=== PATIENT | female | born 1945 | race Caucasian/White ===

== ENCOUNTER → 2017-08-18 09:14 | Outpatient (CLI) | payer MEDICARE, OTHER, SELFPAY ==
[2017-08-18 10:24] LABS: ALB/GLOB Ratio 1.1 RATIO (0.9-2.4); AST(SGOT) 18 U/L (15-37); Alanine Aminotransfer ALT/SGPT 23 U/L (13-56); Albumin, Serum 4.1 g/dL (3.2-5.0); Alkaline Phosphatase 55 U/L (45-117); Anion Gap 6 (5-15); BUN 12 mg/dL (7-18); BUN/Creat Ratio 17.4 RATIO (10-20); Calcium,Total 8.9 mg/dL (8.5-10.1); Chloride 101 mmol/L (98-107); Cholesterol 191 mg/dL (200); Creatinine, Serum 0.69 mg/dL (0.55-1.02); EST Glomerular Filtration Rate 89 mL/min (>60); Est Glom Filt Rate - Afr Amer 108 mL/min (>60); Globulin 3.7 g/dL (2.2-4.2); Glucose 84 mg/dL (74-106); High Density Lipoprotein 45 mg/dL; Protein, Total 7.8 g/dL (6.4-8.2); Sodium Level 136 mmol/L (136-145); Triglycerides 172 mg/dL; Very Low Density Lipoprotein 34 mg/dL (5-40)
== END ==
PROVIDERS: Family Provider Internal Medicine; PCP Internal Medicine; Visit Provider Internal Medicine
DX: E78.00 Pure hypercholesterolemia, unspecified (principal); E87.5 Hyperkalemia; I10 Essential (primary) hypertension
CPT/HCPCS: 36415; 80053; 80061

== ENCOUNTER → 2017-12-08 08:51 | Outpatient (CLI) | payer MEDICARE, OTHER, SELFPAY ==
--- NOTE | 2017-12-08 08:56 | BD_ITS ---
STUDY: DUAL ENERGY X-RAY ABSORPTIOMETRY / DXA REASON FOR EXAM: Female, 72 years old. The patient is postmenopausal. Loss of height. TECHNIQUE: Bone Mineral Density (BMD) measurements of lumbar spine and bilateral hips were obtained. COMPARISON: Comparison is made with prior study dated November 26, 2015. FINDINGS: Lumbar Spine (L1-L4): g/cm2 (1.261) / T-score (0.8) / Z-score (2.5) Findings are suggestive of normal bone density with a low fracture risk. Left Femur Total: g/cm2 (1.032) / T-score (0.2) / Z-score (1.8) Left Femoral Neck: g/cm2 (0.906) / T-score (-0.9) / Z-score (0.8) Right Femur Total: g/cm2 (1.034) / T-score (0.2) / Z-score (1.8) Right Femoral Neck: g/cm2 (0.951) / T-score (-0.7) / Z-score (1.1) The T-Scores on the most recent prior examination were: Lumbar Spine (L1-L4): There has been worsening of bone density since the previous examination. Left Femur Total: which represents a worsening of 4.2%. Right Femur Total: which represents a worsening of 1.4%. BD/DXA BONE DENS W/VERT FX ASMT IMPRESSION: The patient is considered normal as outlined below according to World Maximiliano Organization (WHO) criteria with a low fracture risk. There has been worsening of bone density since the previous examination. Reference Information: The T-score is the number of standard deviations above or below the standard which is normal for young adults at their peak bone mineral density. The World Health Organization (WHO) interprets the T-scores as follows: Above -1 Normal bone density Between -1 and -2.5 Osteopenia Equal to / or below -2.5 Osteoporosis As a practical clinical guideline, osteopenia may be graded as follows: Mild -1 through -1.5 Moderate -1.6 through -2.0 Severe -2.1 through -2.4 The Z-score is the number of standard deviations above or below age-matched controls. A Z-score of less than -1.5 would be considered abnormal. References: 1. NIH Osteoporosis and Related Bone Diseases http://www.osteo.org 2. International Society for Clinical Densitometry http://www.iscd.org 3. National Osteoporosis Foundation http://www.nof.org Electronically Signed: Doyle Barajas MD at 12:54 EDT Tel [phone], Service support ,
== END ==
PROVIDERS: Family Provider Internal Medicine; PCP Internal Medicine; Visit Provider Internal Medicine
DX: Z12.31 Encounter for screening mammogram for malignant neoplasm of breast (principal); Z78.0 Asymptomatic menopausal state
CPT/HCPCS: 77085

== ENCOUNTER → 2018-02-15 09:19 | Outpatient (CLI) | payer MEDICARE, OTHER, SELFPAY ==
[2018-02-15 09:25] LABS: Mucous, Urine 0 SEEN /hpf (<or=2+)
[2018-02-15 09:43] LABS: Basophil# 0.01 X10^3/uL; Basophil% 0.2 % (0-1); Eosinophils% 2.1 % (0-5); Hemoglobin 13.9 g/dl (12.0-15.0); Lymphocyte % 30.9 % (19-41); Mean Corp Hgb Conc 33.1 g/gl (32-36); Mean Corpuscular Hgb 30.3 pg (27.0-32.0); Mean Corpuscular Volume 91.7 fL (81-99); Mean Platelet Vol. 9.6 fl (6.2-12.0); Monocyte# 0.25 X10^3/uL; Monocyte% 5.1 % (0-10); Neutrophil # 2.99 X10^3/uL (2.7-7.7); Neutrophil % 61.5 % (47-70); Platelet Count 244 K/mm3 (150-450); RBC Distribution Width CV 12.9 % (11.6-14.6); RBC Distribution Width SD 43.3 fl (35.1-43.9); Red Blood Count 4.58 M/mm3 (4.2-5.4); White Blood Count 4.9 K/mm3 (4.4-11.0)
[2018-02-15 09:44] LABS: POSITIVE COUNT NO; POSITIVE DIFFERENTIAL NO; POSITIVE MORPHOLOGY NO
[2018-02-15 09:45] LABS: Color, Urine Yellow (Yellow); Glucose, Dipstick Normal (Normal); Ketone-Dipstick Negative (Negative); Leukocyte Esterase-Dipstick 25 /ul (Negative); Nitrite-Dipstick Negative (Negative); Occult Blood-Urine 25 /ul (Negative); Protein-Dipstick Negative (Negative); Specific Gravity, Urine 1.005 (1.002-1.030); Urine Bilirubin Dipstick Negative (Negative); Urine Clarity Sl. Cloudy (Clear); Urine Urobilinogen Normal (Normal)
[2018-02-15 09:52] LABS: Bacteria 1+ /hpf (None Seen); Red Blood Cells-Urine 0-5 SEEN /hpf (0-5); Squamous Epithelial Cells - UA 0-5 SEEN /hpf (5-10); White Blood Cells 0-5 SEEN /hpf (0-5)
[2018-02-15 10:04] LABS: Microalbumin,Random Urine 11.5 mg/L (NO RANGE EST.); Microalbumin:Creatinine Ratio 12.8 mg/g CRE (<30 mg/g CRE)
[2018-02-15 10:12] LABS: Vitamin D,25 Hydroxy 36.3 ng/mL (29.95-100.01)
[2018-02-15 10:14] LABS: ALB/GLOB Ratio 1.1 RATIO (0.9-2.4); AST(SGOT) 15 U/L (15-37); Alanine Aminotransfer ALT/SGPT 22 U/L (13-56); Albumin, Serum 3.9 g/dL (3.2-5.0); Alkaline Phosphatase 58 U/L (45-117); Anion Gap 8 (5-15); BUN 13 mg/dL (7-18); BUN/Creat Ratio 18.2 RATIO (10-20); Calcium,Total 9.2 mg/dL (8.5-10.1); Chloride 101 mmol/L (98-107); Cholesterol 169 mg/dL (200); Creatinine, Serum 0.72 mg/dL (0.55-1.02); EST Glomerular Filtration Rate 85 mL/min (>60); Est Glom Filt Rate - Afr Amer 103 mL/min (>60); Globulin 3.7 g/dL (2.2-4.2); Glucose 88 mg/dL (74-106); High Density Lipoprotein 39 mg/dL; Potassium 4.5 mmol/L (3.5-5.1); Protein, Total 7.6 g/dL (6.4-8.2); Sodium Level 137 mmol/L (136-145); Thyroid Stim Hormone (TSH) 1.59 uIU/mL (0.358-3.74); Triglycerides 155 mg/dL; Very Low Density Lipoprotein 31 mg/dL (5-40)
[2018-02-17 12:07] LABS: CHOLESTEROL TOTAL 172 mg/dL (100-199); HDL-C 37 mg/dL (>39); HDL-P TOTAL 27.6 umol/L (>=30.5); SMALL LDL-P 701 nmol/L (<=527); TRIGLYCERIDES 159 mg/dL (0-149)
[2018-02-17 13:02] LABS: LDL SIZE 20.8 nm (>20.5); LDL-C 103 mg/dL (0-99); LDL-P 1347 nmol/L (<1000); LP-IR SCORE ** 62 (<=45)
== END ==
PROVIDERS: Family Provider Internal Medicine; PCP Internal Medicine; Visit Provider Internal Medicine
DX: I10 Essential (primary) hypertension (principal); E55.9 Vitamin D deficiency, unspecified; E78.00 Pure hypercholesterolemia, unspecified
CPT/HCPCS: 36415; 80053; 80061; 81001; 82043; 82306; 82570; 83704; 84443; 85025

== ENCOUNTER → 2019-02-07 08:33 | Outpatient (CLI) | payer MEDICARE, OTHER, SELFPAY ==
[2019-02-07 08:54] LABS: Bacteria 0 SEEN /hpf (None Seen); Mucous, Urine 0 SEEN /hpf (<or=2+); Squamous Epithelial Cells - UA 0 SEEN /hpf (5-10); White Blood Cells 0 SEEN /hpf (0-5)
[2019-02-07 09:36] LABS: Color, Urine Yellow (Yellow); Glucose, Dipstick Normal (Normal); Ketone-Dipstick Negative (Negative); Leukocyte Esterase-Dipstick 25 /ul (Negative); Nitrite-Dipstick Negative (Negative); Occult Blood-Urine 50 /ul (Negative); Protein-Dipstick Negative (Negative); Urine Bilirubin Dipstick Negative (Negative); Urine Clarity Clear (Clear); Urine Urobilinogen Normal (Normal)
[2019-02-07 09:39] LABS: Absolute Lymphocyte Count 1.15 X10^3/uL (0.83-4.51); Absolute Neutrophil Count 2.7 X10^3/uL (2.0-7.7); Basophil# 0.04 X10^3/uL; Basophil% 0.9 % (0-1); Eosinophils% 4.4 % (0-5); Hematocrit 42.4 % (37-47); Hemoglobin 13.9 g/dL (12.0-15.0); Lymphocyte # 1.15 X10^3/ul (4.0); Lymphocyte % 25.3 % (19-41); Mean Corp Hgb Conc 32.8 g/dL (32-36); Mean Corpuscular Hgb 30.3 pg (27.0-32.0); Mean Corpuscular Volume 92.4 fL (81-99); Mean Platelet Vol. 9.7 fl (6.2-12.0); Monocyte# 0.41 X10^3/uL; NRBC Flagged by Analyzer 0 % (0-5); Neutrophil # 2.73 X10^3/uL (2.7-7.7); Platelet Count 259 K/mm3 (150-450); RBC Distribution Width CV 12.7 % (11.6-14.6); Red Blood Count 4.59 M/mm3 (4.2-5.4); White Blood Count 4.6 K/mm3 (4.4-11.0)
[2019-02-07 09:43] LABS: Red Blood Cells-Urine 0-5 SEEN /hpf (0-5)
[2019-02-07 10:20] LABS: Vitamin D,25 Hydroxy 42.1 ng/mL (29.95-100.01)
[2019-02-07 10:21] LABS: ALB/GLOB Ratio 1.1 RATIO (0.9-2.4); AST(SGOT) 20 U/L (15-37); Alanine Aminotransfer ALT/SGPT 22 U/L (13-56); Albumin, Serum 4.1 g/dL (3.2-5.0); Alkaline Phosphatase 58 U/L (45-117); Anion Gap 3 (5-15); BUN 15 mg/dL (7-18); Calcium,Total 9.5 mg/dL (8.5-10.1); Chloride 103 mmol/L (98-107); Creatinine, Serum 0.72 mg/dL (0.55-1.02); EST Glomerular Filtration Rate 85 mL/min (>60); Est Glom Filt Rate - Afr Amer 103 mL/min (>60); Globulin 3.9 g/dL (2.2-4.2); Glucose 89 mg/dL (74-106); Potassium 4.2 mmol/L (3.5-5.1); Sodium Level 135 mmol/L (136-145); Thyroid Stim Hormone (TSH) 1.85 uIU/mL (0.358-3.74)
[2019-02-07 11:43] LABS: Microalbumin,Random Urine 8.9 mg/L (NO RANGE EST.); Microalbumin:Creatinine Ratio 10.7 mg/g CRE (<30 mg/g CRE)
[2019-02-09 12:08] LABS: CHOLESTEROL TOTAL 199 mg/dL (100-199); HDL-C 43 mg/dL (>39); HDL-P TOTAL 30.5 umol/L (>=30.5); SMALL LDL-P 377 nmol/L (<=527); TRIGLYCERIDES 158 mg/dL (0-149)
[2019-02-12 13:35] LABS: INSULIN RESISTANCE SCORE 41 (<=45); LDL SIZE 21.5 nm (>20.5); LDL-C 124 mg/dL (0-99); LDL-P 1315 nmol/L (<1000)
== END ==
PROVIDERS: Family Provider Internal Medicine; PCP Internal Medicine; Referring Provider Internal Medicine; Visit Provider Internal Medicine
DX: E78.00 Pure hypercholesterolemia, unspecified (principal); E55.9 Vitamin D deficiency, unspecified; I10 Essential (primary) hypertension
CPT/HCPCS: 36415; 80053; 80061; 81001; 82043; 82306; 82570; 83704; 84443; 85025

== ENCOUNTER → 2019-02-19 08:15 | Outpatient (CLI) | payer MEDICARE, OTHER, SELFPAY ==
--- NOTE | 2019-02-19 08:17 | BI_ITS ---
MAMMOGRAPHY - BILATERAL SCREENING REASON FOR EXAM: Female, 74 years old. Routine annual screening examination. PERTINENT HISTORY: Aunt with breast cancer. TECHNIQUE: Digital bilateral breast mattie (3D mammographic acquisition) in the CC and MLO projections. 2-D mediolateral oblique (MLO) and craniocaudad (CC) views of both breasts were obtained. CAD: Full Field Digital Mammography with Computer Added Detection was performed. COMPARISON: Comparison is made with prior ocular examination dated October 25, 2017. FINDINGS: Breast Composition: There are scattered areas of fibroglandular density. There are no dominant masses or suspicious calcifications. Benign-appearing bilateral axillary lymph nodes. No other significant abnormalities are identified. There has been no significant change since the prior study. BI/SCREEN MAMM (CAD) W/MATTIE BILAT IMPRESSION: Stable bilateral screening mammogram. Yearly follow-up mammogram recommended. (A) ASSESSMENT CATEGORY: BIRADS Category 2: Benign. A letter regarding these results will be sent to the patient by the facility within 30 days. Approximately 10% of breast cancers are not detected by mammography. A normal mammogram should not delay biopsy of a clinically suspicious abnormality. [id number] Electronically Signed: Doyle Barajas, at 9:39 EDT , Service support ,
== END ==
PROVIDERS: Family Provider Internal Medicine; PCP Internal Medicine; Referring Provider Internal Medicine; Visit Provider Internal Medicine
DX: Z12.31 Encounter for screening mammogram for malignant neoplasm of breast (principal)
CPT/HCPCS: 77063; 77067

== ENCOUNTER → 2019-12-19 08:52 | Outpatient (CLI) | payer MEDICARE, OTHER, SELFPAY ==
[2019-12-19 09:04] LABS: Bacteria 0 SEEN /hpf (None Seen); Mucous, Urine 0 SEEN /hpf (<or=2+); Red Blood Cells-Urine 0 SEEN /hpf (0-5)
[2019-12-19 09:48] LABS: Color, Urine Yellow (Yellow); Glucose, Dipstick Normal (Normal); Ketone-Dipstick Negative (Negative); Leukocyte Esterase-Dipstick 25 /ul (Negative); Nitrite-Dipstick Negative (Negative); Occult Blood-Urine 25 /ul (Negative); Protein-Dipstick Negative (Negative); Specific Gravity, Urine 1.005 (1.002-1.030); Urine Bilirubin Dipstick Negative (Negative); Urine Clarity Sl. Cloudy (Clear); Urine Urobilinogen Normal (Normal)
[2019-12-19 09:49] LABS: Absolute Lymphocyte Count 1.48 X10^3/uL (0.83-4.51); Absolute Neutrophil Count 2.5 X10^3/uL (2.0-7.7); Basophil# 0.03 X10^3/uL; Basophil% 0.6 % (0-1); Eosinophil# 0.18 X10^3/uL; Eosinophils% 3.9 % (0-5); Hematocrit 41.7 % (37-47); Hemoglobin 13.8 g/dL (12.0-15.0); Lymphocyte # 1.48 X10^3/ul (4.0); Lymphocyte % 31.9 % (19-41); Mean Corp Hgb Conc 33.1 g/dL (32-36); Mean Corpuscular Hgb 31.1 pg (27.0-32.0); Mean Corpuscular Volume 93.9 fL (81-99); Mean Platelet Vol. 9.7 fl (6.2-12.0); Monocyte% 8.6 % (0-10); NRBC Flagged by Analyzer 0 % (0-5); Neutrophil # 2.54 X10^3/uL (2.7-7.7); Neutrophil % 54.8 % (47-70); Platelet Count 251 K/mm3 (150-450); RBC Distribution Width CV 12.6 % (11.6-14.6); RBC Distribution Width SD 43.3 fl (35.1-43.9); Red Blood Count 4.44 M/mm3 (4.2-5.4); White Blood Count 4.6 K/mm3 (4.4-11.0)
[2019-12-19 10:06] LABS: Squamous Epithelial Cells - UA 0-5 SEEN /hpf (5-10); White Blood Cells 0-5 SEEN /hpf (0-5)
[2019-12-19 10:09] LABS: Microalbumin,Random Urine 10.5 mg/L (NO RANGE EST.); Microalbumin:Creatinine Ratio 10.2 mg/g CRE (<30 mg/g CRE)
[2019-12-19 10:34] LABS: ALB/GLOB Ratio 1.1 RATIO (0.9-2.4); AST(SGOT) 20 U/L (15-37); Alanine Aminotransfer ALT/SGPT 23 U/L (13-56); Albumin, Serum 4.1 g/dL (3.2-5.0); Alkaline Phosphatase 51 U/L (45-117); Anion Gap 5 (5-15); BUN 14 mg/dL (7-18); BUN/Creat Ratio 19.7 RATIO (10-20); Chloride 102 mmol/L (98-107); Cholesterol 175 mg/dL (200); Creatinine, Serum 0.71 mg/dL (0.55-1.02); EST Glomerular Filtration Rate 85 mL/min (>60); Est Glom Filt Rate - Afr Amer 103 mL/min (>60); Globulin 3.7 g/dL (2.2-4.2); Glucose 86 mg/dL (74-106); High Density Lipoprotein 42 mg/dL; Potassium 3.9 mmol/L (3.5-5.1); Protein, Total 7.8 g/dL (6.4-8.2); Sodium Level 135 mmol/L (136-145); Thyroid Stim Hormone (TSH) 2.11 uIU/mL (0.358-3.74); Triglycerides 146 mg/dL; Very Low Density Lipoprotein 29 mg/dL (5-40)
[2019-12-19 14:04] LABS: Vitamin D,25 Hydroxy 38.9 ng/mL
== END ==
PROVIDERS: PCP Internal Medicine; Referring Provider Internal Medicine; Visit Provider Internal Medicine
DX: E78.00 Pure hypercholesterolemia, unspecified (principal); I10 Essential (primary) hypertension; E55.9 Vitamin D deficiency, unspecified
CPT/HCPCS: 36415; 80053; 80061; 81001; 82043; 82306; 82570; 84443; 85025

== ENCOUNTER → 2019-12-24 11:39 | Outpatient (CLI) | payer MEDICARE, OTHER, SELFPAY ==
--- NOTE | 2019-12-24 11:42 | RAD_ITS ---
STUDY: X-RAY - PELVIS AND LEFT HIP REASON FOR EXAM: Chronic pain. TECHNIQUE: 2 views of the pelvis and hip. COMPARISON: None. FINDINGS: Normal visualized soft tissue structures. Normal bilateral iliac wings, sacroiliac joints and visualized sacrum. Normal bilateral superior and inferior pubic rami. There is chondrocalcinosis of the pubic symphysis. Normal bilateral ischial tuberosities. Normal visualized femoral head. Normal acetabulum. There is chondrocalcinosis of the left hip joint without joint space narrowing. There is also chondrocalcinosis of the right hip joint. RAD/Hip 1 view with Pelvis IMPRESSION: Chondrocalcinosis of the hip joints bilaterally and pubic symphysis. Electronically Signed: Chris Eaton MD at 14:49 EDT Tel , Service support ,
== END ==
PROVIDERS: PCP Internal Medicine; Referring Provider Internal Medicine; Visit Provider Internal Medicine
DX: M25.552 Pain in left hip (principal)
CPT/HCPCS: 73501

== ENCOUNTER 2020-01-28 09:00 | Outpatient (RCR) | payer MEDICARE, OTHER, SELFPAY ==
--- NOTE | 2020-01-03 09:20 | HP.PTEVAL_ITS ---
Patient's Visit Information KEYA SAN is a 74 year old F referred to Physical Therapy by Dr. Keya Bunch DO with a diagnosis of Left Hip Pain. Date of Evaluation: 01/03/20 Physical Therapist: Liz Fernandez DPT - Visit Plan Frequency: 2x /Week Duration: 4 Weeks Plan: Focus on core strength/stabilization - Subjective Patient reports that she has pseudogout with left>right. She has pain in the back and into the hip and travels down to the foot. Describes the pain as dull. Noticed it last year Feb-April and 2 week later it all went away- then she started vitamin D and it comes back. Worst: 01/06 Agg: vitamin D, sitting, going to bed at night. Eases: getting up and moving around Best: 0/10. The pain comes and goes. Sometimes reports N/T but not very often. Has had back issues before starting at 36 years old- insidious onset that comes and goes. Has had no recent x-rays or her hip or back. Sleep: disturbed- left side- hard to get comfortable- does not wake her up. She does not sit a lot-she walks every evening- use to exercise a few days a week but has been avoiding it as its pretty painful to perform exercises. PMHx: HTN Meds: losartin, hydrocholrothiazide, sprinolactone - Objective Posture: FH, RS- increased kyphosis- can correct but does not maintain. Gait: no deviation noted. HR/TR: able. SLS: 30 sec without LOB bilaterally. Sensation/Reflex: WNL. ROM: WFL in all planes lumbar and LE bilaterally. Strength: Core: fair minus, Hip: 4/5 throughout bilaterally, Knee: 5/5, Ankle: 5/5. Flex: HS: mild restriction, Gastroc: mild. Special Test: Scour: negative, KIRSTIE: positive, Lumbar Pa glides: negative. Palpation: not tender - Goals Goal 1:: Patient will be I with HEP and progression Goal Time Frame: 4-6 Weeks Goal 2:: Patient will maintain proper posture t/o to demo increased core s/s Goal Time Frame: 4-6 Weeks Goal 3:: Patient will report no problems sleeping for a week Goal Time Frame: 4-6 Weeks - Rehabilitation Potential Physical Therapy Diagnosis: Patient presents with hypomobiliy- she has decreased hip and core strength and endurance leading to poor posture and increased pain with ADL's Rehabilitation Potential: Fair - Anticipated Interventions Patient/Client Instruction: Educate patient on: Benefits of Fitness Program Therapeutic Exercise to Include: Strength training, Endurance training, Balance training, Body mechanics, Postural training, Flexibilty training, Gait and locomotor training, Neuromotor development, Dynamic Lumbar Stabilization, Scapular Strength/Stabilization For the Purpose of:: To improve muscle performance and motor function TENS: Yes Cryotherapy (ice pack, ice massage): Yes Thermo therapy (hot pack): Yes For the Purpose of:: To decrease pain Thank you for the opportunity to evaluate your patient. For Medicare and Medicare HMO plans, please review the plan of care and approve it. It will need to be FAXED BACK to us at [phone] for Medicare purposes. For Medicare only, by signing this I certify the plan of care. Please let me know if there are questions or concerns regarding this plan of care. Physician Signature: Date:
--- NOTE | 2020-01-28 09:17 | HP.PTDCSUM ---
It has been my pleasure to treat KEYA SAN referred by Dr. Keya Bunch DO, with the diagnosis of Left Hip Pain for a total of 10 visit(s). Discharge Date: Please see the following information for a summary of their discharge status. Subjective: Patient reports that the hip is a little sporadic- but not really anymore- no triggers- last time she had pain was last week- minor and went away quickly. % Improvement: 98 Objective/Function: Posture: good throughout session Gait: no deviation noted. HR/TR: able. SLS: 30 sec without LOB bilaterally. Sensation/Reflex: WNL. ROM: WFL in all planes lumbar and LE bilaterally. Strength: Core: fair, Hip:5/5 throughout bilaterally, Knee: 5/5, Ankle: 5/5. Flex: HS: mild restriction, Gastroc: mild. Special Test: Scour: negative, KIRSTIE: positive, Lumbar Pa glides: negative. Palpation: not tender Goal 1:: Patient will be I with HEP and progression Goal Progress: Goal Met Goal 2:: Patient will maintain proper posture t/o to demo increased core s/s Goal Progress: Goal Met Goal 3:: Patient will report no problems sleeping for a week Goal Progress: Goal Met Plan: Discharge to [facility] If there are questions or concerns regarding this patient's physical therapy, please feel free to call me at [phone]. Thank you for the referral of this patient. Sincerely, Liz Fernandez DPT
== END 2020-01-28 19:00 | disposition home or self-care (01) ==
LOC: PT 09:00
PROVIDERS: PCP Internal Medicine; Visit Provider Internal Medicine
DX: M11.20 Other chondrocalcinosis, unspecified site (principal)
CPT/HCPCS: 97110; 97162; 97164

== ENCOUNTER → 2020-02-21 09:33 | Outpatient (CLI) | payer MEDICARE, OTHER, SELFPAY ==
--- NOTE | 2020-02-21 09:35 | BI_ITS ---
MAMMOGRAPHY - BILATERAL SCREENING REASON FOR EXAM: Female, 75 years old. Routine annual screening examination. PERTINENT HISTORY: Aunt with breast cancer. TECHNIQUE: Digital bilateral breast mattie (3D mammographic acquisition) in the CC and MLO projections. 2-D mediolateral oblique (MLO) and craniocaudad (CC) views of both breasts were obtained. CAD: Full Field Digital Mammography with Computer Added Detection was performed. COMPARISON: Comparison is made with prior study dated 02/19/2019. FINDINGS: Breast Composition: There are scattered areas of fibroglandular density. There are no dominant masses or suspicious calcifications. Stable benign-appearing bilateral axillary lymph nodes. No other significant abnormalities are identified. There has been no significant change since the prior study. BI/SCREEN MAMM (CAD) W/MATTIE BILAT IMPRESSION: Stable bilateral screening mammogram. Yearly follow-up mammogram recommended. (A) ASSESSMENT CATEGORY: BIRADS Category 2: Benign. A letter regarding these results will be sent to the patient by the facility within 30 days. Approximately 10% of breast cancers are not detected by mammography. A normal mammogram should not delay biopsy of a clinically suspicious abnormality. [id number] Electronically Signed: Doyle Barajas, at 11:12 EDT , Service support ,
--- NOTE | 2020-02-21 09:39 | BD_ITS ---
STUDY: DUAL ENERGY X-RAY ABSORPTIOMETRY / DXA REASON FOR EXAM: Female, 75 years old. 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 COMPARISON: Comparison is made with prior study dated 12/08/2017. FINDINGS: Lumbar Spine (L1-L4): g/cm2 (1.239) / T-score (0.6) / Z-score (2.4) Findings are suggestive of normal bone density with a low fracture risk. Left Femur Total: g/cm2 (0.980) / T-score (-0.2) / Z-score (1.5) Left Femoral Neck: g/cm2 (0.925) / T-score (-0.8) / Z-score (1.1) Right Femur Total: g/cm2 (0.975) / T-score (-0.3) / Z-score (1.4) Right Femoral Neck: g/cm2 (0.939) / T-score (-0.7) / Z-score (1.2) The T-Scores on the most recent prior examination were: Lumbar Spine (L1-L4): There has been worsening of bone density since the previous examination. Left Femur Total: which represents a worsening of 5%. Right Femur Total: which represents a worsening of 5.7%. BD/Dexa Bone Density Study IMPRESSION: The patient is considered normal as outlined below according to World Maximil[employer] Organization (WHO) criteria with a low fracture risk. There has been worsening of bone density since the previous examination. Reference Information: The T-score is the number of standard deviations above or below the standard which is normal for young adults at their peak bone mineral density. The World Health Organization (WHO) interprets the T-scores as follows: Above -1 Normal bone density Between -1 and -2.5 Osteopenia Equal to / or below -2.5 Osteoporosis As a practical clinical guideline, osteopenia may be graded as follows: Mild -1 through -1.5 Moderate -1.6 through -2.0 Severe -2.1 through -2.4 The Z-score is the number of standard deviations above or below age-matched controls. A Z-score of less than -1.5 would be considered abnormal. References: 1. NIH Osteoporosis and Related Bone Diseases http://www.osteo.org 2. International Society for Clinical Densitometry http://www.iscd.org 3. National Osteoporosis Foundation http://www.nof.org Electronically Signed: Doyle Barajas, at 10:48 EDT , Service support ,
== END ==
PROVIDERS: PCP Internal Medicine; Referring Provider Internal Medicine; Visit Provider Internal Medicine
DX: Z12.31 Encounter for screening mammogram for malignant neoplasm of breast (principal); Z78.0 Asymptomatic menopausal state
CPT/HCPCS: 77063; 77067; 77080

== ENCOUNTER 2020-09-05 09:30 | Outpatient (RCR) | payer MEDICARE, OTHER, SELFPAY ==
--- NOTE | 2020-07-11 09:34 | HP.PTEVAL_ITS ---
Patient's Visit Information KEYA SAN is a 75 year old F referred to Physical Therapy by Dr. Keya Bunch DO with a diagnosis of R shoulder impingement and R shoulder pain. Date of Evaluation: 07/11/20 Physical Therapist: CYNDI Méndez - Visit Plan Frequency: 2x /Week Duration: 4 Weeks Plan: 2X/ week for 4 weeks for Scapular retraction and strengthening, R RC strengthening, postural exercises with HEP and modalities as needed. 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 Her R shoulder started to hurt after that. Pt reports that she has pain in her R shoulder and it hurts most of the time. Last Tuesday she got a shot and it helped but it is still there. Driving here it bothers her. Before the shot it would wake her up. Now she is sleeping. It seems to hurt more when she lays down. SOmetimes it helps to lay on the R shouolder. It goes down her whole arm and sometimes into the forearm. OCC her hand will get a little funny but not often. She is R handed. Sometimes she will have some N&T and sometimes she will get mid trap pain. Her posture has not been good... her reminds her everyday. - Pain R shoulder pain Pain Intensity (Out of 10): 4 - Objective R handed: R 37# and L 32#. R shoulder AROM: Approx 170 drgrees shld flex and abd (painful at end range PROM/AROM both), IR to PSIS and ER. L shoulder AROM FULL. +Impingement signs with HK on the R. -Empty can test. R shld MMT: flex and Abd and ER 4-/5 and IR 4/5. L shld MMT: flex, abd, ER and IR all 4/5. Posture: sits with rounded shoulders. Palpation: tender under the acromion on the R - Goals Goal 1:: I HEP Goal Time Frame: 4-6 Weeks Goal 2:: Increase R shoulder AROM to full painfree Goal Time Frame: 4-6 Weeks Goal 3:: SIt with upright posture during treatment sessions Goal Time Frame: 4-6 Weeks Goal 4:: Increas R shld MMT (flex, abd and ER) to 4+/5 Goal Time Frame: 4-6 Weeks - Rehabilitation Potential Rehabilitation Potential: Good - Anticipated Interventions Patient/Client Instruction: Educate patient on: Condition, Plan of Care For the Purpose of:: To decrease pain, To increase ROM, To improve nutrient delivery to tissue, To improve muscle performance and motor function, To improve ability to perform ADL's, To improve performance and independence with ADL's, To decrease level of supervision to perform tasks, To improve health of tissue Therapeutic Exercise to Include: Strength training, Postural training, Neuromotor development, Passive ROM, Active ROM, Scapular Strength/Stabilization For the Purpose of:: To decrease pain, To increase ROM, To improve nutrient delivery to tissue, To improve muscle performance and motor function, To improve ability to perform ADL's, To increase tolerance to activity/condition/position, To improve health of tissue, To decrease soft tissue restriction, To increase flexibility/ROM Manual Therapy Techniques to Include: Passive ROM For the Purpose of:: To increase ROM IF ES: Yes Cryotherapy (ice pack, ice massage): Yes Ultrasound (thermal/non thermal): Yes For the Purpose of:: To decrease pain, To decrease swelling/inflammation, To increase ROM, To improve nutrient delivery to tissue Thank you for the opportunity to evaluate your patient. For Medicare and Medicare HMO plans, please review the plan of care and approve it. It will need to be FAXED BACK to us at [phone] for Medicare purposes. For Medicare only, by signing this I certify the plan of care. Please let me know if there are questions or concerns regarding this plan of care. Physician Signature: Date:
--- NOTE | 2020-09-05 09:58 | HP.PTDCSUM ---
It has been my pleasure to treat KEYA SAN referred by Dr. Keya Bunch DO, with the diagnosis of R shoulder impingement and R shoulder pain for a total of 12 visit(s). Discharge Date: 09/05/20 Please see the following information for a summary of their discharge status. Subjective: Pt has 3/10 pain today. Pain is still keeping her up at night. She has already had a cortizone shot and is still doing her exercises. Pt is doing her exercises at home: corner stretching, T's and Y's, band ER/IR and ext, bicep and S/L ER. She is able to do most activities but pays for it later at night. R shoulder pain Pain Intensity (Out of 10): 3 % Improvement: 40 Objective/Function: Recommend physical reassessment with possible MRI for further diagnostic info. Goal 1:: I HEP Goal Progress: Goal Met Goal 2:: Increase R shoulder AROM to full painfree Goal Progress: Progressing Goal 3:: SIt with upright posture during treatment sessions Goal Progress: Goal Met Goal 4:: Increas R shld MMT (flex, abd and ER) to 4+/5 Plan: DC PT and back to physicaian for reassessment/ MRI Discharge Comments: DC PT back to physician for MRI/ possible ortho consult If there are questions or concerns regarding this patient's physical therapy, please feel free to call me at [phone]. Thank you for the referral of this patient. Sincerely, Mehnaz Florentino, MPT
== END 2020-09-05 12:42 | disposition home or self-care (01) ==
LOC: PT 09:30
PROVIDERS: PCP Internal Medicine; Referring Provider Internal Medicine; Visit Provider Internal Medicine
DX: M25.811 Other specified joint disorders, right shoulder (principal)
CPT/HCPCS: 97035; 97110; 97140; 97161; 97530

== ENCOUNTER → 2020-11-10 11:01 | Outpatient (CLI) | payer MEDICARE, OTHER, SELFPAY ==
--- NOTE | 2020-11-10 11:10 | EKG12_ITS ---
Test Reason : PREOP Blood Pressure : / mmHG Vent. Rate : 069 BPM Atrial Rate : 069 BPM P-R Int : 150 ms QRS Dur : 072 ms QT Int : 362 ms P-R-T Axes : 027 -29 032 degrees QTc Int : 387 ms Normal sinus rhythm Normal ECG Confirmed by ALLAN TEMPLETON, SHIVA ([id number]), technical editor HAMLET REYES ([id number]) on 11/11/2020 9:04:39 AM Referred By: Kun Saucedo Confirmed By:SHIVA LEMUS MD
[2020-11-10 12:43] LABS: Hematocrit 40.6 % (37-47); Hemoglobin 13.5 g/dL (12.0-15.0); Mean Corp Hgb Conc 33.3 g/dL (32-36); Mean Corpuscular Hgb 30.5 pg (27.0-32.0); Mean Corpuscular Volume 91.6 fL (81-99); Mean Platelet Vol. 9.9 fl (6.2-12.0); Platelet Count 279 K/mm3 (150-450); RBC Distribution Width CV 12.6 % (11.6-14.6); RBC Distribution Width SD 42.5 fl (35.1-43.9); Red Blood Count 4.43 M/mm3 (4.2-5.4); White Blood Count 7.1 K/mm3 (4.4-11.0)
[2020-11-10 13:14] LABS: Anion Gap 5 (5-15); BUN 18 mg/dL (7-18); BUN/Creat Ratio 32.2 RATIO (10-20); Calcium,Total 9.1 mg/dL (8.5-10.1); Chloride 104 mmol/L (98-107); Creatinine, Serum 0.56 mg/dL (0.55-1.02); EST Glomerular Filtration Rate 112 mL/min (>60); Est Glom Filt Rate - Afr Amer 136 mL/min (>60); Glucose 88 mg/dL (74-106); Potassium 4.4 mmol/L (3.5-5.1); Sodium Level 138 mmol/L (136-145)
== END ==
PROVIDERS: PCP Internal Medicine; Referring Provider Physician Assistant; Visit Provider Physician Assistant
DX: Z01.818 Encounter for other preprocedural examination (principal); Z01.810 Encounter for preprocedural cardiovascular examination
CPT/HCPCS: 36415; 80048; 85027; 93005

== ENCOUNTER → 2021-01-21 08:11 | Outpatient (CLI) | payer MEDICARE, OTHER, SELFPAY ==
[2021-01-21 08:21] LABS: Bacteria 0 SEEN /hpf (None Seen); Mucous, Urine 0 SEEN /hpf (<or=2+)
[2021-01-21 08:46] LABS: Absolute Lymphocyte Count 1.66 X10^3/uL (0.83-4.51); Absolute Neutrophil Count 2.5 X10^3/uL (2.0-7.7); Basophil# 0.05 X10^3/uL; Eosinophils% 6.2 % (0-5); Hemoglobin 13.5 g/dL (12.0-15.0); Lymphocyte # 1.66 X10^3/ul (0.83-4.51); Lymphocyte % 34.4 % (19-41); Mean Corp Hgb Conc 32.1 g/dL (32-36); Mean Corpuscular Hgb 30.5 pg (27.0-32.0); Mean Platelet Vol. 9.5 fl (6.2-12.0); Monocyte# 0.35 X10^3/uL; Monocyte% 7.2 % (0-10); NRBC Flagged by Analyzer 0 % (0-5); Neutrophil # 2.46 X10^3/uL (2.7-7.7); Platelet Count 274 K/mm3 (150-450); RBC Distribution Width CV 12.7 % (11.6-14.6); RBC Distribution Width SD 44.7 fl (35.1-43.9); Red Blood Count 4.42 M/mm3 (4.2-5.4); White Blood Count 4.8 K/mm3 (4.4-11.0)
[2021-01-21 08:56] LABS: Color, Urine Yellow (Yellow); Glucose, Dipstick Normal (Normal); Ketone-Dipstick Negative (Negative); Leukocyte Esterase-Dipstick 25 /ul (Negative); Nitrite-Dipstick Negative (Negative); Occult Blood-Urine 150 /ul (Negative); Protein-Dipstick 15 mg/dl (Negative); Specific Gravity, Urine 1.015 (1.002-1.030); Urine Bilirubin Dipstick Negative (Negative); Urine Clarity Sl. Cloudy (Clear); Urine Urobilinogen Normal (Normal)
[2021-01-21 09:03] LABS: Red Blood Cells-Urine 10-25 SEEN /hpf (0-5); Squamous Epithelial Cells - UA 0-5 SEEN /hpf (5-10); White Blood Cells 0-5 SEEN /hpf (0-5)
[2021-01-21 09:11] LABS: Microalbumin,Random Urine 35.8 mg/L (NO RANGE EST.); Microalbumin:Creatinine Ratio 22.8 mg/g CRE (<30 mg/g CRE)
[2021-01-21 09:30] LABS: ALB/GLOB Ratio 1.1 RATIO (0.9-2.4); AST(SGOT) 18 U/L (15-37); Alanine Aminotransfer ALT/SGPT 27 U/L (13-56); Albumin, Serum 4.2 g/dL (3.2-5.0); Alkaline Phosphatase 62 U/L (45-117); Anion Gap 5 (5-15); BUN 19 mg/dL (7-18); Calcium,Total 9.3 mg/dL (8.5-10.1); Chloride 105 mmol/L (98-107); Cholesterol 181 mg/dL (200); Creatinine, Serum 0.66 mg/dL (0.55-1.02); EST Glomerular Filtration Rate 93 mL/min (>60); Est Glom Filt Rate - Afr Amer 113 mL/min (>60); Globulin 3.7 g/dL (2.2-4.2); Glucose 91 mg/dL (74-106); High Density Lipoprotein 46 mg/dL; Potassium 4.6 mmol/L (3.5-5.1); Protein, Total 7.9 g/dL (6.4-8.2); Sodium Level 137 mmol/L (136-145); Thyroid Stim Hormone (TSH) 1.54 uIU/mL (0.358-3.74); Triglycerides 175 mg/dL; Very Low Density Lipoprotein 35 mg/dL (5-40)
[2021-01-21 09:33] LABS: Vitamin D,25 Hydroxy 44.5 ng/mL
== END ==
PROVIDERS: PCP Internal Medicine; Referring Provider Internal Medicine; Visit Provider Internal Medicine
DX: E78.00 Pure hypercholesterolemia, unspecified (principal); E55.9 Vitamin D deficiency, unspecified; I10 Essential (primary) hypertension
CPT/HCPCS: 36415; 80053; 80061; 81001; 82043; 82306; 82570; 84443; 85025

== ENCOUNTER → 2021-02-06 09:44 | Outpatient (CLI) | payer MEDICARE, OTHER, SELFPAY ==
--- NOTE | 2021-02-06 09:46 | US_ITS ---
STUDY: RENAL ULTRASOUND - COMPLETE REASON FOR EXAM: Female, 76 years old. Microscopic hematuria. TECHNIQUE: Ultrasound evaluation of the kidneys was performed with real-time and static ramos-scale imaging. COMPARISON: Comparison is made with prior examination dated 03/24/2010. FINDINGS: RIGHT KIDNEY: Normal location of the right kidney, which is normal in size. The right kidney measures 10.1 cm x 6.3 cm x 4.6 cm. There is a normal cortex of the right kidney. The renal cortex measures 1.4 cm. There is no right renal mass or cyst. There are no right renal calculi. There is no right hydronephrosis. DISTAL RIGHT URETER: There is non-visualization of the distal right ureter. There is no demonstrated right ureterovesical junction calculus. There is a visualized right ureteral jet. LEFT KIDNEY: Normal location of the left kidney, which is normal in size. The left kidney measures 10.6 cm x 5 cm x 5.2 cm. There is a normal cortex of the left kidney. The renal cortex measures 1.2 cm. There is no left renal mass or cyst. There are no left renal calculi. There is no left hydronephrosis. DISTAL LEFT URETER: There is non-visualization of the distal left ureter. There is no demonstrated left ureterovesical junction calculus. There is a visualized left ureteral jet. BLADDER: The distended urinary bladder has a volume of 455 ml. There is a normal wall thickness of the distended urinary bladder. There is no demonstrated mass within the urinary bladder. There are no demonstrated bladder calculi. US/Kidney and Bladder IMPRESSION: Normal ultrasound of the kidneys and urinary bladder. Electronically Signed: Doyle Barajas MD at 12:39 EDT , Service support ,
== END ==
PROVIDERS: PCP Internal Medicine; Referring Provider Urology; Visit Provider Urology
DX: R31.9 Hematuria, unspecified (principal)
CPT/HCPCS: 76770

== ENCOUNTER 2021-02-13 09:30 | Outpatient (RCR) | payer MEDICARE, OTHER, SELFPAY ==
--- NOTE | 2020-11-29 10:52 | HP.PTEVAL_ITS ---
Patient's Visit Information LUPE SAN is a 75 year old F referred to Physical Therapy by Kun Saucedo PA-C with a diagnosis of R RTC repair and biceps tenodesis. Date of Evaluation: 11/21/20 Physical Therapist: Ryan Canseco DPT - Visit Plan Frequency: 2-3x /Week Duration: 6 Weeks Plan: Start with PROM of R shoulder add in gentle mobs as well to assist with tolerance. Once cleared by physician jefferson BLACK. - Subjective Pt. is here today for her initial evaluation with diagnosis of strain of R RTC and impingement of R shoulder. Pt. reports that she had surgery to repair her RTC of her R shoulder. Pt. was unsure of what else, if anything else was surgically repaired. Pt. arrives with sling today without issue. Pt. reports no N/T in her R UE. She reports some soreness in her R shoulder, but overall she is doing well. Pt. is wearing her sling as prescribed. Pt. reports not starting any exercises yet. Her script does not denote an RTC repair, but will call after evaluation. Pt. reports having surgery ~ 1 week prior. Pt. is sleeping in her bed without issues, using sling. She has taken her arm out of the sling for brief periods of time without issues. Pt. is hopeful to reduce symptoms in order to get back to all recreational and household activities without limitations. - Pain R shoulder Pain Intensity (Out of 10): 3 Pain Intensity Range: 0, 6 - Objective POSTURE: Pt. has normal cervical posture. Pt. has R arm in guarded posture at her side. Normal shoulder height noted. PALPATION: pt. has marked bruising at R shoulder. Pt. has normal healing incisions, no signs of infection. NEURO: pt. has normal sensation of BUEs. Pt. has normal DTR of bilateral triceps, did not try biceps due to biceps tenodesis. ROM: PROM: R shoulder: flexion 99deg, abd 85deg, ER at side 20deg, IR not tested. MMT: not tested today. - Goals Goal 1:: LTG: pt. to be I with HEP for ROM and strengthening of R UE. Goal Time Frame: 6-8 Weeks Goal 2:: STG: pt. to sleep through out the night without increase in symptoms. Goal Time Frame: 2-4 Weeks Goal 3:: STG: Pt. to have increased PROM of R shoulder to 170deg of flexion, 170deg of abd, 90 deg of ER and 50deg of IR. Goal Time Frame: 2-4 Weeks Goal 4:: LTG: pt. to have full AROM of R shoulder without increase in symptoms. Goal Time Frame: 4-6 Weeks Goal 5:: LTG: Pt. to have at least 4+/5 strength of R shoulder without increase in symptoms. Goal Time Frame: 6-8 Weeks Goal 6:: LTG: Pt. to complete all household and recreational activities without increase in symptoms of R shoulder. Goal Time Frame: 6-8 Weeks - Rehabilitation Potential Physical Therapy Diagnosis: Pt. has signs and symptoms consistent with R RTC tear and biceps tenodesis. Pt. would benefit from PT to work on PROM progressing to AROM then to strengthening once cleared by physician. Rehabilitation Potential: Good - Anticipated Interventions Patient/Client Instruction: Educate patient on: Condition, Plan of Care, Risk Factors, Benefits of Fitness Program For the Purpose of:: To improve health and function, To foster healthy habits, To improve decision making, To facilitate caregiver knowledge, To improve self management, To prevent re-injury Therapeutic Exercise to Include: Strength training, Power training, Body mechanics, Postural training, Flexibilty training, Passive ROM, Active ROM For the Purpose of:: To decrease pain, To increase ROM, To improve nutrient delivery to tissue, To increase oxygenation perfusion, To improve muscle performance and motor function, To improve ability to perform ADL's, To increase tolerance to activity/condition/position, To improve health of tissue, To decrea se soft tissue restriction, To increase flexibility/ROM Manual Therapy Techniques to Include: Mobilization, Passive ROM, Soft tissue mobilization For the Purpose of:: To decrease pain, To decrease swelling/inflammation, To increase ROM, To improve nutrient delivery to tissue, To increase oxygenation perfusion, To improve muscle performance and motor function Thank you for the opportunity to evaluate your patient. For Medicare and Medicare HMO plans, please review the plan of care and approve it. It will need to be FAXED BACK to us at [phone] for Medicare purposes. For Medicare only, by signing this I certify the plan of care. Please let me know if there are questions or concerns regarding this plan of car e. Physician Signature: Date:
--- NOTE | 2020-12-29 14:05 | HP.PTREVAL ---
Kun Saucedo PA-C, It has been my pleasure to treat LUPE SAN over the last 10 visits for R RTC repair and biceps tenodesis. Please see the progress note below for an update on the physical therapy plan of care! Subjective: Pt. reports still having some pain with sleeping and daily activities. She is to see physician next week. Objective/Function: PROM: flexion 145deg, abd 130deg, ER at 90deg 30deg increase NW, IR at 90deg 30deg. pt. is slwoly progressing with her PROM. She still has pain as her limiting factor, but is overall progress. I urged her to be consistent with her stretching at home. She continues to have some increased soreness in her shoulder, but is improving slowly. Plan Plan: COnt. to progress end range PROM as tolerated. Add in joint mobs to increase tolerance to passive mobility. Pt. to see physician next week. Balance/Gait/Functional tests - Balance/Special Test Scores Quick DASH Score: 56.8175 Goals Goal 1:: LTG: pt. to be I with HEP for ROM and strengthening of R UE. Goal Time Frame: 6-8 Weeks Goal 2:: STG: pt. to sleep through out the night without increase in symptoms. Goal Time Frame: 2-4 Weeks Goal 3:: STG: Pt. to have increased PROM of R shoulder to 170deg of flexion, 170deg of abd, 90 deg of ER and 50deg of IR. Goal Time Frame: 2-4 Weeks Goal 4:: LTG: pt. to have full AROM of R shoulder without increase in symptoms. Goal Time Frame: 4-6 Weeks Goal 5:: LTG: Pt. to have at least 4+/5 strength of R shoulder without increase in symptoms. Goal Time Frame: 6-8 Weeks Goal 6:: LTG: Pt. to complete all household and recreational activities without increase in symptoms of R shoulder. Goal Time Frame: 6-8 Weeks Anticipated Interventions Patient/Client Instruction: Educate patient on: Condition, Plan of Care, Risk Factors, Benefits of Fitness Program For the Purpose of:: To improve health and function, To foster healthy habits, To improve decision making, To facilitate caregiver knowledge, To improve self management, To prevent re-injury Therapeutic Exercise to Include: Strength training, Power training, Body mechanics, Postural training, Flexibilty training, Passive ROM, Active ROM For the Purpose of:: To decrease pain, To increase ROM, To improve nutrient delivery to tissue, To increase oxygenation perfusion, To improve muscle performance and motor function, To improve ability to perform ADL's, To increase tolerance to activity/condition/position, To improve health of tissue, To decrease soft tissue restriction, To increase flexibility/ROM Manual Therapy Techniques to Include: Mobilization, Passive ROM, Soft tissue mobilization For the Purpose of:: To decrease pain, To decrease swelling/inflammation, To increase ROM, To improve nutrient delivery to tissue, To increase oxygenation perfusion, To improve muscle performance and motor function Please do not hesitate to contact me at [phone] by phone or if you have questions or concerns regarding this new plan of care! Sincerely, SHILPA NicholsT
--- NOTE | 2021-01-19 11:03 | HP.PTREVAL ---
Kun Saucedo PA-C, It has been my pleasure to treat LUPE SAN over the last 17 visits for R RTC repair and biceps tenodesis. Please see the progress note below for an update on the physical therapy plan of care! Subjective: Pt. reports having increased medication and is no backing off, but is having some mild increase in symptoms. Objective/Function: PROM: flexion 170deg, abd 175deg, ER at 90deg 80deg, IR at 90deg 40deg. AROM: flexion 125deg, abd 115deg, functional IR Gluteal range, functional ER C1. Pt. is improving with her PROM, but slower with her AROM. Cont. to stress functional IR/ER motions, end range flexion and abduction as well. Plan Plan: Cont. to stress functional IR/ER motions, end range flexion and abduction as well. add in iso strengthening as tolerated. Pt. to follow up with physician next week. Balance/Gait/Functional tests - Balance/Special Test Scores Quick DASH Score: 56.8175 Goals Goal 1:: LTG: pt. to be I with HEP for ROM and strengthening of R UE. Goal Time Frame: 6-8 Weeks Goal Progress: Progressing Goal 2:: STG: pt. to sleep through out the night without increase in symptoms. Goal Time Frame: 2-4 Weeks Goal Progress: Progressing Goal 3:: STG: Pt. to have increased PROM of R shoulder to 170deg of flexion, 170deg of abd, 90 deg of ER and 50deg of IR. Goal Time Frame: 2-4 Weeks Goal Progress: Progressing Goal 4:: LTG: pt. to have full AROM of R shoulder without increase in symptoms. Goal Time Frame: 4-6 Weeks Goal Progress: Progressing Goal 5:: LTG: Pt. to have at least 4+/5 strength of R shoulder without increase in symptoms. Goal Time Frame: 6-8 Weeks Goal Progress: Progressing Goal 6:: LTG: Pt. to complete all household and recreational activities without increase in symptoms of R shoulder. Goal Time Frame: 6-8 Weeks Goal Progress: Progressing Anticipated Interventions Patient/Client Instruction: Educate patient on: Condition, Plan of Care, Risk Factors, Benefits of Fitness Program For the Purpose of:: To improve health and function, To foster healthy habits, To improve decision making, To facilitate caregiver knowledge, To improve self management, To prevent re-injury Therapeutic Exercise to Include: Strength training, Power training, Body mechanics, Postural training, Flexibilty training, Passive ROM, Active ROM For the Purpose of:: To decrease pain, To increase ROM, To improve nutrient delivery to tissue, To increase oxygenation perfusion, To improve muscle performance and motor function, To improve ability to perform ADL's, To increase tolerance to activity/condition/position, To improve health of tissue, To decrease soft tissue restriction, To increase flexibility/ROM Manual Therapy Techniques to Include: Mobilization, Passive ROM, Soft tissue mobilization For the Purpose of:: To decrease pain, To decrease swelling/inflammation, To increase ROM, To improve nutrient delivery to tissue, To increase oxygenation perfusion, To improve muscle performance and motor function Please do not hesitate to contact me at [phone] by phone or if you have questions or concerns regarding this new plan of care! Sincerely, Ryan Canseco DPT
--- NOTE | 2021-02-16 11:26 | HP.PTDCSUM_ITS ---
It has been my pleasure to treat LUPE SAN referred by Kun Saucedo PA-C, with the diagnosis of R RTC repair and biceps tenodesis for a total of 24 visit(s). Discharge Date: 02/13/21 Please see the following information for a summary of their discharge status. Subjective: Pt. reports being 75% better overall. She is sleeping better, but is still having some trouble with getting her hand behind her back and over his head. R shoulder Pain Intensity (Out of 10): 0 % Improvement: 75 Objective/Function: ROM: R shoulder AROM: flexion 155deg, abd 150deg, functional ER C3, functional IR L5. PROM: flexion 175deg, abd 176deg, ER at 90deg 90deg, IR at 90deg 50deg. MMT: R shoulder: flexion 4/5, abd 4/5, ER 4/5, IR 5/5, Ext 5/5. Pt. is still tight with ER and IR motions. Pt. is progressing, but slowly. I talked with her about being consistent with her ROM and strengthening exercises until overall doing better then to wean away from then at that point in time. Pt. consents. Goal 1:: LTG: pt. to be I with HEP for ROM and strengthening of R UE. Goal Progress: Goal Met Goal 2:: STG: pt. to sleep through out the night without increase in symptoms. Goal Progress: Goal Met Goal 3:: STG: Pt. to have increased PROM of R shoulder to 170deg of flexion, 170deg of abd, 90 deg of ER and 50deg of IR. Goal Progress: Progressing Goal 4:: LTG: pt. to have full AROM of R shoulder without increase in symptoms. Goal Progress: Progressing Goal 5:: LTG: Pt. to have at least 4+/5 strength of R shoulder without increase in symptoms. Goal Progress: Progressing Goal 6:: LTG: Pt. to complete all household and recreational activities without increase in symptoms of R shoulder. Goal Progress: Goal Met Plan: Pt. will be DC from PT at this point in time. Discharge Comments: Pt. was treated for her R shoulder RTC repair with initial ROM progressing to strengthening. She is overall continuing to progress. She is still still in end ranges, but has a program to continue to stretch and to progress with strengthening. She is I with program and plans to be consistent. I will DC patient at this point in time to HEP. Pt. to call if needed. If there are questions or concerns regarding this patient's physical therapy, please feel free to call me at [phone]. Thank you for the referral of this patient. Sincerely, Ryan Canseco, DPT Balance/Gait/Functional tests - Balance/Special Test Scores Quick DASH Score: 11.3627
== END 2021-02-13 19:00 | disposition home or self-care (01) ==
LOC: PT 09:30
PROVIDERS: PCP Internal Medicine; Referring Provider Physician Assistant; Visit Provider Physician Assistant
DX: S46.011D Strain of muscle(s) and tendon(s) of the rotator cuff of right shoulder, subsequent encounter (principal); X58.XXXD Exposure to other specified factors, subsequent encounter; M75.41 Impingement syndrome of right shoulder
CPT/HCPCS: 36415; 80053; 80061; 81001; 82043; 82306; 82570; 84443; 85025; 97110; 97140; 97161; 97164

== ENCOUNTER → 2021-02-23 09:55 | Outpatient (CLI) | payer MEDICARE, OTHER, SELFPAY ==
--- NOTE | 2021-02-23 09:57 | BI_ITS ---
MAMMOGRAPHY - BILATERAL SCREENING REASON FOR EXAM: Female, 76 years old. Routine annual screening examination. PERTINENT HISTORY: Aunt with breast cancer. TECHNIQUE: Digital bilateral breast mattie (3D mammographic acquisition) in the CC and MLO projections. 2-D mediolateral oblique (MLO) and craniocaudad (CC) views of both breasts were obtained. CAD: Full Field Digital Mammography with Computer Added Detection was performed. COMPARISON: Comparison is made with prior examination dated 02/21/2020 and 02/19/2019. FINDINGS: Breast Composition: There are scattered areas of fibroglandular density. There are no dominant masses or suspicious calcifications. Stable small benign-appearing bilateral axillary lymph nodes. No other significant abnormalities are identified. There has been no significant change since the prior study. BI/SCRN MAMM (CAD)W/MATTIE BILAT IMPRESSION: Stable bilateral screening mammogram. Yearly follow-up mammogram recommended. (A) ASSESSMENT CATEGORY: BIRADS Category 2: Benign. A letter regarding these results will be sent to the patient by the facility within 30 days. Approximately 10% of breast cancers are not detected by mammography. A normal mammogram should not delay biopsy of a clinically suspicious abnormality. [id number] Electronically Signed: Doyle Barajas MD at 10:45 EDT , Service support ,
== END ==
PROVIDERS: PCP Internal Medicine; Referring Provider Internal Medicine; Visit Provider Internal Medicine
DX: Z12.31 Encounter for screening mammogram for malignant neoplasm of breast (principal)
CPT/HCPCS: 77063; 77067

== ENCOUNTER → 2022-03-02 | Outpatient (CLI) | payer MEDICARE, OTHER, SELFPAY ==
--- NOTE | 2022-03-02 09:57 | BI_ITS ---
MAMMOGRAPHY - BILATERAL SCREENING REASON FOR EXAM: Female, 77 years old. Routine annual screening examination. PERTINENT HISTORY: Aunt with breast cancer. TECHNIQUE: Digital bilateral breast mattie (3D mammographic acquisition) in the CC and MLO projections. 2-D mediolateral oblique (MLO) and craniocaudad (CC) views of both breasts were obtained. CAD: Full Field Digital Mammography with Computer Added Detection was performed. COMPARISON: Comparison is made with prior study dated 02/23/2021 and 02/21/2020. FINDINGS: Breast Composition: There are scattered areas of fibroglandular density. There are no dominant masses or suspicious calcifications. No other significant abnormalities are identified. There has been no significant change since the prior study. BI/SCRN MAMM (CAD)W/MATTIE BILAT IMPRESSION: Stable bilateral screening mammogram. Yearly follow-up mammogram recommended. (A) ASSESSMENT CATEGORY: BIRADS Category 1: Negative. A letter regarding these results will be sent to the patient by the facility within 30 days. Approximately 10% of breast cancers are not detected by mammography. A normal mammogram should not delay biopsy of a clinically suspicious abnormality. [id number] Electronically Signed: Doyle Barajas MD at 12:57 EDT ,
--- NOTE | 2022-03-02 10:04 | BD_ITS ---
STUDY: DUAL ENERGY X-RAY ABSORPTIOMETRY / DXA REASON FOR EXAM: Female, 77 years old. Z780. Patient is postmenopausal. TECHNIQUE: Bone Mineral Density (BMD) measurements of lumbar spine and bilateral hips were obtained. COMPARISON: Comparison is made with prior examination of 02/21/2020. FINDINGS: Lumbar Spine (L1-L4): g/cm2 (1.172) / T-score (1.2) / Z-score (3.7) Findings are suggestive of normal bone density with a low fracture risk. Left Femur Total: g/cm2 (0.899) / T-score (-0.4) / Z-score (1.5) Left Femoral Neck: g/cm2 (0.793) / T-score (-0.5) / Z-score (1.6) Right Femur Total: g/cm2 (0.872) / T-score (-0.6) / Z-score (1.3) Right Femoral Neck: g/cm2 (0.72) / T-score (-0.6) / Z-score (1.5) The T-Scores on the most recent prior examination were: Lumbar Spine (L1-L4): There has been improvement of bone density since the previous examination. Left Femur Total: which represents a worsening of 1.8%. Right Femur Total: which represents a worsening of 4.1%. BD/Dexa Bone Density Study IMPRESSION: The patient is considered normal as outlined below according to World Maximil[employer] Organization (WHO) criteria with a low fracture risk. There has been worsening of bone density since the previous examination. Reference Information: The T-score is the number of standard deviations above or below the standard which is normal for young adults at their peak bone mineral density. The World Health Organization (WHO) interprets the T-scores as follows: Above -1 Normal bone density Between -1 and -2.5 Osteopenia Equal to / or below -2.5 Osteoporosis As a practical clinical guideline, osteopenia may be graded as follows: Mild -1 through -1.5 Moderate -1.6 through -2.0 Severe -2.1 through -2.4 The Z-score is the number of standard deviations above or below age-matched controls. A Z-score of less than -1.5 would be considered abnormal. References: 1. NIH Osteoporosis and Related Bone Diseases www osteo.org 2. International Society for Clinical Densitometry www iscd.org 3. National Osteoporosis Foundation www nof.org Electronically Signed: Doyle Barajas MD at 10:27 EDT ,
== END | disposition home or self-care (01) ==
LOC: OPBD 09:55
PROVIDERS: PCP Internal Medicine; Visit Provider Internal Medicine
DX: Z12.31 Encounter for screening mammogram for malignant neoplasm of breast (principal); Z78.0 Asymptomatic menopausal state; Z80.3 Family history of malignant neoplasm of breast
CPT/HCPCS: 77063; 77067; 77080

== ENCOUNTER → 2022-08-24 | Outpatient (CLI) | payer MEDICARE, OTHER, SELFPAY ==
[2022-08-24 09:23] LABS: Bacteria 0 SEEN /hpf (None Seen); Mucous, Urine 0 SEEN /hpf (<or=2+); Squamous Epithelial Cells - UA 0 SEEN /hpf (5-10)
[2022-08-24 11:08] LABS: Color, Urine Yellow (Yellow); Glucose, Dipstick Normal (Normal); Ketone-Dipstick Negative (Negative); Leukocyte Esterase-Dipstick 100 /ul (Negative); Nitrite-Dipstick Negative (Negative); Occult Blood-Urine 50 /ul (Negative); Protein-Dipstick Negative (Negative); Urine Bilirubin Dipstick Negative (Negative); Urine Clarity Clear (Clear); Urine Urobilinogen Normal (Normal)
[2022-08-24 11:10] LABS: Absolute Lymphocyte Count 1.38 X10^3/uL (0.83-4.51); Absolute Neutrophil Count 2.9 X10^3/uL (2.0-7.7); Basophil# 0.03 X10^3/uL; Basophil% 0.6 % (0-1); Eosinophil# 0.21 X10^3/uL; Eosinophils% 4.2 % (0-5); Hematocrit 43.4 % (37-47); Hemoglobin 14.2 g/dL (12.0-15.0); Lymphocyte # 1.38 X10^3/ul (0.83-4.51); Lymphocyte % 27.9 % (19-41); Mean Corp Hgb Conc 32.7 g/dL (32-36); Mean Corpuscular Hgb 29.9 pg (27.0-32.0); Mean Corpuscular Volume 91.4 fL (81-99); Mean Platelet Vol. 9.8 fl (6.2-12.0); Monocyte% 8.1 % (0-10); NRBC Flagged by Analyzer 0 % (0-5); Neutrophil # 2.92 X10^3/uL (2.7-7.7); Platelet Count 269 K/mm3 (150-450); RBC Distribution Width CV 13.1 % (11.6-14.6); Red Blood Count 4.75 M/mm3 (4.2-5.4)
[2022-08-24 11:17] LABS: Red Blood Cells-Urine 0-5 SEEN /hpf (0-5); White Blood Cells 5-10 SEEN /hpf (0-5)
[2022-08-24 11:48] LABS: Vitamin D,25 Hydroxy 75.4 ng/mL
[2022-08-24 12:00] LABS: ALB/GLOB Ratio 1.1 RATIO (0.9-2.4); AST(SGOT) 23 U/L (15-37); Alanine Aminotransfer ALT/SGPT 21 U/L (13-56); Alkaline Phosphatase 59 U/L (45-117); Anion Gap 5 (5-15); BUN 18 mg/dL (7-18); BUN/Creat Ratio 30.8 RATIO (10-20); Calcium,Total 8.9 mg/dL (8.5-10.1); Chloride 106 mmol/L (98-107); Cholesterol 175 mg/dL (200); Creatinine, Serum 0.58 mg/dL (0.55-1.02); EST Glomerular Filtration Rate 106 mL/min (>60); Est Glom Filt Rate - Afr Amer 129 mL/min (>60); Globulin 3.8 g/dL (2.2-4.2); Glucose 86 mg/dL (74-106); High Density Lipoprotein 50 mg/dL; Potassium 3.7 mmol/L (3.5-5.1); Protein, Total 7.8 g/dL (6.4-8.2); Sodium Level 139 mmol/L (136-145); Thyroid Stim Hormone (TSH) 1.61 uIU/mL (0.358-3.74); Triglycerides 99 mg/dL; Very Low Density Lipoprotein 20 mg/dL (5-40)
== END | disposition home or self-care (01) ==
LOC: LAB 09:19
PROVIDERS: PCP Internal Medicine; Referring Provider Internal Medicine; Visit Provider Internal Medicine
DX: E55.9 Vitamin D deficiency, unspecified (principal); E78.00 Pure hypercholesterolemia, unspecified; I10 Essential (primary) hypertension
CPT/HCPCS: 36415; 80053; 80061; 81001; 82043; 82306; 82570; 84443; 85025

== ENCOUNTER → 2023-04-14 | Outpatient (CLI) | payer MEDICARE, OTHER, SELFPAY ==
--- NOTE | 2023-04-14 08:51 | BI_ITS ---
MAMMOGRAPHY - BILATERAL SCREENING REASON FOR EXAM: Female, 78 years old. Routine annual screening examination. PERTINENT HISTORY: Non-contributory. TECHNIQUE: Digital bilateral breast mattie (3D mammographic acquisition) in the CC and MLO projections. 2-D mediolateral oblique (MLO) and craniocaudad (CC) views of both breasts were obtained. CAD: Full Field Digital Mammography with Computer Added Detection was performed. COMPARISON: Comparison is made with prior study March 02, 2022 and February 23, 2021. FINDINGS: Breast Composition: There are scattered areas of fibroglandular density. There are no dominant masses or suspicious calcifications. Stable bilateral secretory calcifications. Fat-containing bilateral axillary nodes. No other significant abnormalities are identified. There has been no significant change since the prior study. BI/SCRN MAMM (CAD)W/MATTIE BILAT IMPRESSION: Stable bilateral screening mammogram. Yearly follow-up mammogram recommended. (A) ASSESSMENT CATEGORY: BIRADS Category 2: Benign. A letter regarding these results will be sent to the patient by the facility within 30 days. Approximately 10% of breast cancers are not detected by mammography. A normal mammogram should not delay biopsy of a clinically suspicious abnormality. [id number] Electronically Signed: Doyle Barajas MD at 9:33 EST ,
== END | disposition home or self-care (01) ==
LOC: OPBI 08:50
PROVIDERS: PCP Internal Medicine; Referring Provider Internal Medicine; Visit Provider Internal Medicine
DX: Z12.31 Encounter for screening mammogram for malignant neoplasm of breast (principal)
CPT/HCPCS: 77063; 77067

== ENCOUNTER → 2024-06-05 | Outpatient (CLI) | payer MEDICARE, OTHER, SELFPAY ==
--- NOTE | 2024-06-05 10:12 | BI_ITS ---
MAMMOGRAPHY - BILATERAL SCREENING REASON FOR EXAM: Female, 79 years old. Routine annual screening examination. PERTINENT HISTORY: Aunt with breast cancer. TECHNIQUE: Digital bilateral breast mattie (3D mammographic acquisition) in the CC and MLO projections. 2-D mediolateral oblique (MLO) and craniocaudad (CC) views of both breasts were obtained. CAD: Full Field Digital Mammography with Computer Added Detection was performed. COMPARISON: Comparison is made with prior study April 14, 2023 and March 02, 2022. FINDINGS: Breast Composition: There are scattered areas of fibroglandular density. There are no dominant masses or suspicious calcifications. Stable small bilateral benign-appearing axillary lymph nodes. No other significant abnormalities are identified. There has been no significant change since the prior study. BI/SCRN MAMM (CAD)W/MATTIE BILAT IMPRESSION: Stable bilateral screening mammogram. Yearly follow-up mammogram recommended. (A) ASSESSMENT CATEGORY: BIRADS Category 2: Benign. A letter regarding these results will be sent to the patient by the facility within 30 days. Approximately 10% of breast cancers are not detected by mammography. A normal mammogram should not delay biopsy of a clinically suspicious abnormality. [id number] Electronically Signed: Doyle Barajas MD at 12:07 EST ,
--- NOTE | 2024-06-05 10:15 | BD_ITS ---
STUDY: DUAL ENERGY X-RAY ABSORPTIOMETRY / DXA REASON FOR EXAM: Female, 79 years old. 627.8Menopausal postmenopausalBONE DENSITY REASON FOR EXAM -- Postmenopausal status TECHNIQUE: Bone Mineral Density (BMD) measurements of lumbar spine and bilateral hips were obtained. COMPARISON: Comparison is made with prior study March 02, 2022. FINDINGS: Lumbar Spine (L1-L4): g/cm2 (1.164) / T-score (1.2) / Z-score (3.7) Findings are suggestive of normal bone density with a low fracture risk. Left Femur Total: g/cm2 (0.887) / T-score (-0.5) / Z-score (1.5) Left Femoral Neck: g/cm2 (0.687) / T-score (-1.5) / Z-score (0.8) Right Femur Total: g/cm2 (0.864) / T-score (-0.6) / Z-score (1.3) Right Femoral Neck: g/cm2 (0.732) / T-score (-1.1) / Z-score (1.2) The T-Scores on the most recent prior examination were: Lumbar Spine (L1-L4): There has been worsening of bone density since the previous examination. Left Femur Total: which represents a worsening of 1.3%. Right Femur Total: which represents a worsening of 0.9%. BD/Dexa Bone Density Study IMPRESSION: The patient is considered osteopenic as outlined below according to World [employer] Organization (WHO) criteria with a low fracture risk. There has been worsening of bone density since the previous examination. Reference Information: The T-score is the number of standard deviations above or below the standard which is normal for young adults at their peak bone mineral density. The World Health Organization (WHO) interprets the T-scores as follows: Above -1 Normal bone density Between -1 and -2.5 Osteopenia Equal to / or below -2.5 Osteoporosis As a practical clinical guideline, osteopenia may be graded as follows: Mild -1 through -1.5 Moderate -1.6 through -2.0 Severe -2.1 through -2.4 The Z-score is the number of standard deviations above or below age-matched controls. A Z-score of less than -1.5 would be considered abnormal. References: 1. NIH Osteoporosis and Related Bone Diseases www osteo.org 2. International Society for Clinical Densitometry www iscd.org 3. National Osteoporosis Foundation www nof.org Electronically Signed: Doyle Barajas MD at 9:05 EST ,
== END | disposition home or self-care (01) ==
PROVIDERS: PCP Internal Medicine; Referring Provider Internal Medicine; Visit Provider Internal Medicine
DX: Z12.31 Encounter for screening mammogram for malignant neoplasm of breast (principal); Z80.3 Family history of malignant neoplasm of breast; Z78.0 Asymptomatic menopausal state
CPT/HCPCS: 77063; 77067; 77080

== ENCOUNTER → 2024-10-24 | Outpatient (CLI) | payer MEDICARE, OTHER, SELFPAY ==
[2024-10-24 10:08] LABS: Absolute Lymphocyte Count 1.58 X10^3/uL (0.83-4.51); Absolute Neutrophil Count 3.8 X10^3/uL (2.0-7.7); Basophil# 0.04 X10^3/uL; Basophil% 0.7 % (0-1); Eosinophil# 0.17 X10^3/uL; Eosinophils% 2.8 % (0-5); Hematocrit 42.1 % (37-47); Hemoglobin 13.9 g/dL (12.0-15.0); Lymphocyte # 1.58 X10^3/ul (0.83-4.51); Lymphocyte % 25.9 % (19-41); Mean Corpuscular Hgb 30.2 pg (27.0-32.0); Mean Corpuscular Volume 91.5 fL (81-99); Mean Platelet Vol. 9.9 fl (6.2-12.0); Monocyte# 0.53 X10^3/uL; Monocyte% 8.7 % (0-10); NRBC Flagged by Analyzer 0 % (0-5); Neutrophil # 3.75 X10^3/uL (2.7-7.7); Neutrophil % 61.6 % (47-70); Platelet Count 261 K/mm3 (150-450); RBC Distribution Width CV 12.8 % (11.6-14.6); RBC Distribution Width SD 42.8 fl (35.1-43.9); White Blood Count 6.1 K/mm3 (4.4-11.0)
[2024-10-24 10:25] LABS: Color, Urine Yellow (Yellow); Glucose, Dipstick Normal (Normal); Ketone-Dipstick Negative (Negative); Leukocyte Esterase-Dipstick 25 /ul (Negative); Nitrite-Dipstick Negative (Negative); Occult Blood-Urine 150 /ul (Negative); Protein-Dipstick 15 mg/dl (Negative); Specific Gravity, Urine 1.015 (1.002-1.030); Urine Bilirubin Dipstick Negative (Negative); Urine Clarity Clear (Clear); Urine Urobilinogen Normal (Normal)
[2024-10-24 11:25] LABS: Mucous, Urine RARE /hpf (<or=2+); Red Blood Cells-Urine 0-5 SEEN /hpf (0-5); White Blood Cells 0-5 SEEN /hpf (0-5)
[2024-10-24 11:27] LABS: Transitional Epithelial - Ur 0-5 SEEN /hpf (0-5)
[2024-10-24 11:28] LABS: Bacteria RARE /hpf (None Seen); Squamous Epithelial Cells - UA 0-5 SEEN /hpf (5-10)
[2024-10-24 11:42] LABS: Microalbumin,Random Urine 20.4 mg/L (NO RANGE EST.); Microalbumin:Creatinine Ratio 159.4 mg/g CRE
[2024-10-24 13:14] LABS: ALB/GLOB Ratio 1.6 RATIO (0.9-2.4); AST(SGOT) 25 U/L (<=31); Alanine Aminotransfer ALT/SGPT 16 U/L (<=34); Albumin, Serum 4.7 g/dL (3.4-4.8); Alkaline Phosphatase 57 U/L (35-104); Anion Gap 10 (5-15); BUN 17 mg/dL (4-19); BUN/Creat Ratio 24.6 RATIO (10-20); Calcium,Total 10.3 mg/dL (7.6-11.0); Carbon Dioxide 26.3 mmol/L (21.0-32.0); Chloride 101 mmol/L (98-108); Cholesterol 190 mg/dL (<=200); Creatinine, Serum 0.68 mg/dL (0.70-1.20); EST Glomerular Filtration Rate 89 (>60); Glucose 89 mg/dL (70-99); High Density Lipoprotein 45 mg/dL; Low Density Lipoprotein Calc. 114 mg/dL; Potassium 4.4 mmol/L (3.3-5.1); Protein, Total 7.7 g/dL (5.9-8.4); Sodium Level 137 mmol/L (133-145); Total Bilirubin 0.47 mg/dL (0.00-1.30); Triglycerides 156 mg/dL; Very Low Density Lipoprotein 31 mg/dL (5-40); Vitamin D,25 Hydroxy 69.1 ng/mL (30-100); cholesterol:hdl ratio screen 4.22
== END | disposition home or self-care (01) ==
LOC: LAB 09:10
PROVIDERS: PCP Internal Medicine; Referring Provider Internal Medicine; Visit Provider Internal Medicine
DX: I10 Essential (primary) hypertension (principal); E55.9 Vitamin D deficiency, unspecified; E78.00 Pure hypercholesterolemia, unspecified
CPT/HCPCS: 36415; 80053; 80061; 81001; 82043; 82306; 82570; 84443; 85025

== ENCOUNTER 2025-03-11 09:00 | Outpatient (RCR) | payer MEDICARE, OTHER, SELFPAY ==
--- NOTE | 2025-01-21 09:51 | HP.PTEVAL_ITS ---
Patient's Visit Information Visit Information Visit Information: LUPE SAN is a 80 year old F referred to Physical Therapy by Dr. Lupe Bunch DO with a diagnosis of R knee pain and R sciatica. Date of Evaluation: 01/21/25 Physical Therapist: CYNDI Méndez Visit Plan Frequency: 2x /Week Duration: 2 Months Plan: 2X/ week for 6 weeks for foam rolling of R Quad and hip flexor, stre ngthening of R knee and hip and some neutral spine core stability, gait training for equal stance time on B LE and increase stride length with HEP. HEP: SLR, Bridges Subjective Subjective: Pt can not sleep at night because of her R knee pain. At the end of October she went to [place] and did a lot of walking and then 2 weeks later her knee started to bother her. She usually walks 30 min everyday anyway. At night when she would lay down the pain was 10/10 and could not sleep. gave her different meds (prednisone --did nothing, gabapentin...could sleep a little and sit in chair better, celebrex....was able to sleep until 4:00am. Once she is able to get up she is fine. She can sit now, she can sleep to 3-4:00am. She was getting sciatica bad until the celebrex and that was down the back of the leg. She did an x-ray of the knee and it showed mild OA and does have some osteoporosis. She has no spams Pain R medial knee pain: Pain Intensity (Out of 10): 0 R sciatic pain: Pain Intensity (Out of 10): 0 Objective Objective: Gait: walks with decrease stance time on the R LE (broken L toe as well) and does step out from time to time. She has decrease stride length. LE MMT: R hip flex 10.5 and L 8.8 R knee ext 15.9 and L 14.5 R knee flex 10.3 and L 11.2 R hip abd 16.3 and L 19.5 Standing heel and toe raises: pt is able to heel and toe walk with no weakness present Trunk AROM: Flexion 100%, Ext 50%, SB B 50%, Rot B 75% R knee AROM B -1 degrees to 135 degrees knee flexion Bridge: 3/4 normal ROM SLR test: - B Prone lying: had a little center of back pain. Longer laid there pain went away. Prone to Patricia felt the same pain in center of back...did this X 10 times....started to go farther down R buttock. laid flat again and pain went away. Tried Prone to PATRICIA X 10 more times..... and started to feel a little more in R buttock. 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 Did feel very tight Quad and IT band on the R. Did some foam rolling and seemed to loosen up some Pt had tightness in R Quad and hip flexor. Balance/Special Test Scores Lower Extremity Functional Score: 65 Goals Goal 1:: I HEP Goal Time Frame: 4-6 Weeks Goal 2:: Be able to sleep at night without knee pain waking her up at 3-4 am Goal Time Frame: 4-6 Weeks Goal 3:: Increase R Quad and hip flexor flexibility Goal Time Frame: 4-6 Weeks Goal 4:: Increase R hip and Quad strength (at the time of the eval: R knee ext 15.9 and L 14.5 R knee flex 10.3 and L 11.2 R hip abd 16.3 and L 19.5) Goal Time Frame: 4-6 Weeks Goal 5:: Be able to walk with more equal stance gait pattern Goal Time Frame: 4-6 Weeks Rehabilitation Potential Rehabilitation Potential: Good Anticipated Interventions Patient/Client Instruction: Educate patient on: Condition and Plan of Care For the Purpose of:: To decrease pain, To increase ROM, To improve nutrient delivery to tissue, To improve muscle performance and motor function, To improve ability to perform ADL's, To increase tolerance to activity/condition/position, To improve performance and independence with ADL's, To decrease level of supervision to perform tasks, To improve ability of physical actions for home/community/work/leisure, To improve gait and locomotor functions, To improve health of tissue, To decrease soft tissue restriction and To increase flexibility/ROM Therapeutic Exercise to Include: Strength training, Endurance training, Balance training, Postural training, Flexibilty training, Gait and locomotor training, Neuromotor development, Passive ROM, Active ROM and Dynamic Lumbar Stabilization For the Purpose of:: To decrease pain, To increase ROM, To improve nutrient delivery to tissue, To improve muscle performance and motor function, To improve ability to perform ADL's, To increase tolerance to activity/condition/position, To improve performance and independence with ADL's, To decrease level of supervision to perform tasks, To improve ability of physical actions for home/community/work/leisure, To improve gait and locomotor functions, To improve health of tissue, To decrease soft tissue restriction, To increase flexibility/ROM, To improve endurance and To improve balance Functional Training to Include: Gait training For the Purpose of:: To improve gait and locomotor functions Manual Therapy Techniques to Include: Passive ROM and Soft tissue mobilization For the Purpose of:: To decrease pain, To increase ROM, To improve nutrient delivery to tissue, To improve muscle performance and motor function, To improve ability to perform ADL's, To increase tolerance to activity/condition/position, To decrease level of supervision to perform tasks, To improve gait and locomotor functions, To improve health of tissue, To decrease soft tissue restriction and To increase flexibility/ROM Text: Thank you for the opportunity to evaluate your patient. For Medicare and Medicare HMO plans, please review the plan of care and approve it. It will need to be FAXED BACK to us at [phone] for Medicare purposes. For Medicare only, by signing this I certify the plan of care. Please let me know if there are questions or concerns regarding this plan of care. Physician Signature: Date:
--- NOTE | 2025-03-11 09:54 | HP.PTDCSUM ---
Discharge Summary D/C summary: It has been my pleasure to treat KEYA SAN referred by Dr. Keya Bunch DO, with the diagnosis of R knee pain and R sciatica for a total of 15 visit(s). Discharge Date: 03/11/25 Please see the following information for a summary of their discharge status. Subjective Subjective: She is bad in the mornings and it has woken her up recently. The knee thing went away and then after a few weeks the knee thing came back. She keeps doing the exercises. She thinks the sciatica exercises help/ They did do an x-ray of the knee and she has arthritis in her knee. Pain R medial knee pain: Pain Intensity (Out of 10): 0 R sciatic pain: Pain Intensity (Out of 10): 0 LBP: Pain Intensity (Out of 10): 0 Overall Improvement % Improvement: 30 Objective Objective/Function: R knee ext 23.3 and L 25.2 R knee flex 10.3 and L 11.2 R hip abd 16.3 and L 19.5 Gait: walks with wider ROXANE and decreased stance time on the R LE Quad flexibility: R WFL and much improved Goals Goal 1:: I HEP Goal Progress: Goal Met Goal 2:: Be able to sleep at night without knee pain waking her up at 3-4 am Goal Progress: Goal Met Goal 3:: Increase R Quad and hip flexor flexibility Goal Progress: Goal Met Goal 4:: Increase R hip and Quad strength (at the time of the eval: R knee ext 15.9 and L 14.5 R knee flex 10.3 and L 11.2 R hip abd 16.3 and L 19.5) Goal Progress: Progressing Goal 5:: Be able to walk with more equal stance gait pattern Goal Progress: Not Progressing Plan Plan: Issued HEP sheet ( press ups, prone hip ext, cat/camel, fire hydrant, sit to stand, mid rows, B arm extension and seated and standing pirformis stretches). Pt will continue to do the above and her knee exercises and discuss with her Dr at the end of Nov D/C Information Discharge Comments: DC PT to HEP d/c sentence: If there are questions or concerns regarding this patient's physical therapy, please feel free to call me at [phone]. Thank you for the referral of this patient. Sincerely, Mehnaz Florentino, MPT Balance/Gait/Functional tests Balance/Special Test Scores Lower Extremity Functional Score: 63 Improvement % Improvement: 30
== END 2025-03-11 11:59 | disposition home or self-care (01) ==
LOC: PT 09:00
PROVIDERS: PCP Internal Medicine; Referring Provider Internal Medicine; Visit Provider Internal Medicine
DX: M25.561 Pain in right knee (principal); M54.31 Sciatica, right side
CPT/HCPCS: 97110; 97162; 97530